=== PATIENT | male | born 1975 | race Caucasian/White ===

== ENCOUNTER → 2017-01-22 | Outpatient (REF) ==
[~2017-01-22] MED LIST: EFFEXOR 75M75 MG/TAB PO; NORCO 325 MG-7.1 TAB PO; SYNTHROID0.05 MG/TA PO; VITAMIN D32000 IU PO
== END ==
LOC: WSOH 09:43
DX: Z02.4 Encounter for examination for driving license (principal)

== ENCOUNTER → 2017-02-12 | Outpatient (REF) | LOC: WSOH 09:04 | DX: Z00.00 Encounter for general adult medical examination without abnormal findings (principal) ==

== ENCOUNTER → 2017-02-15 | Outpatient (REF) | LOC: WSOH 11:54 | DX: Z02.89 Encounter for other administrative examinations (principal) ==

== ENCOUNTER → 2017-02-19 | Outpatient (REF) | LOC: WSOH 09:31 | DX: Z01.89 Encounter for other specified special examinations (principal) ==

== ENCOUNTER 2017-03-14 16:36 | Day surgery (SDC) | payer OTHER ==
[2017-03-14] VITALS (9 sets, daily range): BP systolic 94–120; BP diastolic 67–74; PULSE 76–129; TEMP 98
[~2017-03-14] VITALS: Ht 177.8 cm; Wt 91.9 kg
[2017-03-14] MEDS ORDERED: SYNTHROID0.05 MG/TA PO (16:52)
[2017-03-14] MEDS ORDERED: VITAMIN D32000 IU PO (16:52)
[2017-03-14] MEDS ORDERED: EFFEXOR 75M75 MG/TAB PO (16:59)
[2017-03-15 02:00] VITALS: BP 108/65; PULSE 98; TEMP 98.5
[2017-03-15 06:00] VITALS: BP 107/61; PULSE 94; TEMP 98.4
[2017-03-15] MEDS ORDERED: NORCO 325 MG-7.1 TAB PO (06:58)
[2017-03-15 09:40] VITALS: BP 130/85; PULSE 107; TEMP 98.4
== END 2017-03-15 10:50 | disposition home or self-care (01) ==
LOC: SDCO 16:36 → SURG 16:36 → SDCO 03-15 10:50
DX: K35.80 Unspecified acute appendicitis (principal); E03.9 Hypothyroidism, unspecified; F41.8 Other specified anxiety disorders; K38.8 Other specified diseases of appendix
CPT/HCPCS: OP; J0694; J1100; J2405; J2704; J2710; J2765; J3010; J7120

== ENCOUNTER 2017-12-22 11:02 | Emergency (ER) | payer OTHER ==
[~2017-12-22] VITALS: Ht 180.3 cm; Wt 95.5 kg
[2017-12-22 11:14] VITALS: BP 146/88; TEMP 98.5
[2017-12-22] MEDS ORDERED: SYNTHROID0.075 MG/T PO (11:26)
[2017-12-22] MEDS ORDERED: EFFEXOR100 MG PO (11:26)
[2017-12-22 12:56] VITALS: PULSE 95
== END 2017-12-22 12:58 | disposition home or self-care (01) ==
LOC: COL.ER 11:02
DX: M54.9 Dorsalgia, unspecified (principal); E03.9 Hypothyroidism, unspecified; Z87.39 Personal history of other diseases of the musculoskeletal system and connective tissue
CPT/HCPCS: J2360

== ENCOUNTER 2018-11-04 07:16 | Emergency (ER) | payer OTHER ==
[~2018-11-04] VITALS: Ht 177.8 cm; Wt 86.4 kg
[~2018-11-04 07:16] MED LIST changes: +EFFEXOR100 MG PO; +SYNTHROID0.075 MG/T PO
[2018-11-04 07:25] VITALS: BP 133/93; TEMP 98
[2018-11-04] MEDS ORDERED: ADVIL200 MG PO (07:28)
[2018-11-04] MEDS ORDERED: AMOXICILLIN 8751 TAB PO (08:23)
[2018-11-04 08:55] VITALS: PULSE 91
== END 2018-11-04 08:58 | disposition home or self-care (01) ==
LOC: COL.ER 07:16
DX: S01.81XA Laceration without foreign body of other part of head, initial encounter (principal); F43.10 Post-traumatic stress disorder, unspecified; Z90.89 Acquired absence of other organs; W54.0XXA Bitten by dog, initial encounter; Y92.009 Unspecified place in unspecified non-institutional (private) residence as the place of occurrence of the external cause